=== PATIENT | male | born 1970 | race Caucasian/White ===

== ENCOUNTER 2018-04-18 14:58 | Emergency (ER) | payer OTHER, SELFPAY ==
[2018-04-18 15:06] VITALS: BP 127/87; PULSE 59; RESP 14; TEMP 36.8; O2SAT 98
--- NOTE | 2018-04-18 15:12 | ED.TRAUMA ---
HPI - Trauma General Chief Complaint: Extremity Injury, Upper Stated Complaint: right side shoulder pain from a fall Time Seen by Provider: 04/18/18 15:11 Source: patient and family Mode of arrival: ambulatory Limitations: no limitations History of Present Illness HPI narrative: This is a 48-year-old male who comes to the emergency department with complaint of right thoracic back pain. Patient was riding a horse that bucked him off. Patient was helmeted. He fell onto his back sort of striking posterior right shoulder. He states that every time he moves the shoulder or arm it feels like something is moving in properly, below the scapula in the thoracic back region. Patient states he did hit his head, he was helmeted, he states he was not knocked out he did see stars. He denies any headache, denies any vision changes, he denies any nausea or vomiting. States he has pain with deep inspiration but otherwise does not feel short of breath. He does not have any anterior chest pain. Patient does not have any other GI or urinary symptoms. He does have shingles currently which he is being treated for. Related Data Home Medications Medication Instructions Recorded Confirmed acyclovir 04/18/18 Previous Rx's Medication Instructions Recorded meloxicam [Mobic] 7.5 mg PO BID #10 tab 04/18/18 Allergies Allergy/AdvReac Type Severity Reaction Status Date / Time Penicillins Allergy Verified 04/18/18 15:08 Review of Systems Review of Systems ROS Unobtainable: All systems reviewed & are unremarkable except as noted in HPI and below ENT Ears, Nose, Mouth, and Throat: Denies neck pain Cardiovascular Denies chest pain, Denies edema, Denies dyspnea and Denies dyspnea on exertion Respiratory Denies cough, Denies hemoptysis, Reports pain on inspiration, Denies dyspnea, Denies dyspnea on exertion and Denies wheezing Gastrointestinal Gastrointestinal: Denies abdominal pain, Denies change in bowel habits, Denies diarrhea, Denies nausea and Denies vomiting Musculoskeletal Reports back pain (thoracic, below scapular), Denies deformity, Denies arthralgias, Reports limited range of motion, Denies muscle weakness, Denies neck pain, Denies numbness, Denies radiating pain into limb, Denies stiffness and Denies tingling Integumentary/Breasts Reports other (shingles) Neurologic Denies numbness and Denies tingling Allergic/Immunologic Denies wheezing PFSH Medical History Shingles (Acute) Exam Narrative Exam Narrative: GEN: Patient appears in mild distress. HEAD: No evidence of trauma, no raccoon/Mckeon sign. NECK: Nontender, painless range of motion, trachea midline Negative Nexus criteria, there is no midline tenderness, distracting injury, altered mental status, neuro deficit, recent EtOH. EYES: PERRLA, EOMI ENT: External inspection normal, trachea is midline, TM's are normal no hemotypanum, Nares are clear, no septal hematoma, no dental or oral injury, airway is normal and with normal occlusion, No bony tenderness RESP: Chest is nontender and has symmetric movement, no ecchymosis, breath sounds are normal no crackles, wheezes or rales CVS: Heart sounds are normal, no murmur noted, No JVD. ABG/GI: Nontender, soft, normal bowel sounds, no distention, no organomegaly, pelvic rock is negative NEURO: Oriented AOx3, neuro is grossly intact, sensation and motor is normal all 4 extremities moving, cranial nerves II through XII are intact, GCS is 15 PSYCH: Normal mood and affect SKIN: Intact, warm and dry, no crepitus and without decubitus patient has 2 small areas rash consistent with shingles on the left on the lateral angle of the ribs and just lateral to the thoracic spine in the T8 dermatome. No ecchymosis or bruising. BACK: No CVA tenderness, no vertebral tenderness, no step-off's, no crepitus. Patient does not have any point tenderness, no deformity. No subcutaneous emphysema. He has slightly more discomfort in the right thoracic region inferior to the scapula by about 3 in. EXT: Atraumatic, hips are nontender, no pedal edema, normal color and temperature, normal range of motion of extremities with normal tendon exam, 2+ pulses in all four extremities Initial Vital Signs Initial Vital Signs: Vital Signs Temperature 98.2 F 04/18/18 15:06 Pulse Rate 59 L 04/18/18 15:06 Respiratory Rate 14 04/18/18 15:06 Blood Pressure 127/87 04/18/18 15:06 Pulse Oximetry 98 04/18/18 15:06 Course Orders Ordered: ED Orders 04/18/18 15:11 XR ribs RT min 3V w CXR1V Stat Vital Signs - 8 hr 04/18/18 15:06 Temperature 98.2 F Pulse Rate 59 L Respiratory Rate 14 Blood Pressure 127/87 Pulse Oximetry 98 [facility] - Trauma Imaging Data rib series, cxr: Radiologist's impression: [address] [address] XRay Report Signed Patient: Jesus Manuel De Santiago MR#: [id number] : 1970 Acct:[id number] Age/Sex: 48 / M Date of Service: 04/18/18 Loc: ED Accession Number: [id number] Procedure: XR ribs RT min 3V w CXR1V Ordering Provider: Parvin Weinstein D.O. PROCEDURE: XR RIBS RT MIN 3V W CXR 1V INDICATIONS: right rib pain, posterior below scapular region TECHNIQUE: 2 views of the right ribs were acquired, along with a single view chest. COMPARISON: None. FINDINGS: Surgical changes and devices: None. Bones and chest wall: No fractures or dislocations. No suspicious bony lesions. Overlying soft tissues appear unremarkable. Lungs and pleura: No pleural effusions or pneumothorax. Lungs appear clear. Mediastinum: Mediastinal contours appear normal. Heart size is normal. IMPRESSION: No gross displaced rib fracture. No acute cardiopulmonary pathology. Dictated by: Kory Spring M.D. on 04/18/2018 at 15:27 Approved by: Kory Spring M.D. on 04/18/2018 at 15:29 [facility] Narrative Medical decision making narrative: Patient defers any pain medications, he took Alleve prior to arrival. No acute changes found on patient's x-ray. We did discuss he could have a very small nondisplaced rib fracture. Discussed signs symptoms to watch for reasons to return emergently. We discussed trying some different medication for pain. Patient is not particularly interested in narcotic options so we discussed trying Mobic twice daily but avoiding any other NSAIDs while taking this. We did discuss he can also do Tylenol. Was offered a work no but he defers. Discharge Plan Departure Patient Disposition: Home Clinical Impression: Acute thoracic back pain Instructions: DI for Thoracic Back Pain Activity Restrictions/Additional Instructions: Follow up for recheck in the next 5-7 days if no improvement. Take medications as prescribed. Do not take ibuprofen, Aleve or naproxen with this medication you may take it twice daily. You may take Tylenol up to a 1000 mg every 8 hr as needed for pain. You may take 3000 mg of Tylenol in a 24 hr period. Return to the emergency department for new numbness, weakness, altered mental status, difficulty breathing, passing out, persistent vomiting or other new or concerning symptoms. Prescriptions: New meloxicam [Mobic] 7.5 mg tablet 7.5 mg PO BID Qty: 10 RF: 0 No Action acyclovir 800 mg Tablet RF: 0
--- NOTE | 2018-04-18 15:18 | ED_ITS ---
HPI - Trauma General Chief Complaint: Extremity Injury, Upper Stated Complaint: right side shoulder pain from a fall Time Seen by Provider: 04/18/18 15:11 Source: patient and family Mode of arrival: ambulatory Limitations: no limitations History of Present Illness HPI narrative: This is a 48-year-old male who comes to the emergency department with complaint of right thoracic back pain. Patient was riding a horse that bucked him off. Patient was helmeted. He fell onto his back sort of striking posterior right shoulder. He states that every time he moves the shoulder or arm it feels like something is moving in properly, below the scapula in the thoracic back region. Patient states he did hit his head, he was helmeted, he states he was not knocked out he did see stars. He denies any headache, denies any vision changes, he denies any nausea or vomiting. States he has pain with deep inspiration but otherwise does not feel short of breath. He does not have any anterior chest pain. Patient does not have any other GI or urinary symptoms. He does have shingles currently which he is being treated for. Related Data Home Medications Medication Instructions Recorded Confirmed acyclovir 04/18/18 Previous Rx's Medication Instructions Recorded meloxicam [Mobic] 7.5 mg PO BID #10 tab 04/18/18 Allergies Allergy/AdvReac Type Severity Reaction Status Date / Time Penicillins Allergy Verified 04/18/18 15:08 Review of Systems Review of Systems ROS Unobtainable: All systems reviewed & are unremarkable except as noted in HPI and below ENT Ears, Nose, Mouth, and Throat: Denies neck pain Cardiovascular Denies chest pain, Denies edema, Denies dyspnea and Denies dyspnea on exertion Respiratory Denies cough, Denies hemoptysis, Reports pain on inspiration, Denies dyspnea, Denies dyspnea on exertion and Denies wheezing Gastrointestinal Gastrointestinal: Denies abdominal pain, Denies change in bowel habits, Denies diarrhea, Denies nausea and Denies vomiting Musculoskeletal Reports back pain (thoracic, below scapular), Denies deformity, Denies arthralgias, Reports limited range of motion, Denies muscle weakness, Denies neck pain, Denies numbness, Denies radiating pain into limb, Denies stiffness and Denies tingling Integumentary/Breasts Reports other (shingles) Neurologic Denies numbness and Denies tingling Allergic/Immunologic Denies wheezing PFSH Medical History Shingles (Acute) Exam Narrative Exam Narrative: GEN: Patient appears in mild distress. HEAD: No evidence of trauma, no raccoon/Mckeon sign. NECK: Nontender, painless range of motion, trachea midline Negative Nexus criteria, there is no midline tenderness, distracting injury, altered mental status, neuro deficit, recent EtOH. EYES: PERRLA, EOMI ENT: External inspection normal, trachea is midline, TM's are normal no hemotypanum, Nares are clear, no septal hematoma, no dental or oral injury, airway is normal and with normal occlusion, No bony tenderness RESP: Chest is nontender and has symmetric movement, no ecchymosis, breath sounds are normal no crackles, wheezes or rales CVS: Heart sounds are normal, no murmur noted, No JVD. ABG/GI: Nontender, soft, normal bowel sounds, no distention, no organomegaly, pelvic rock is negative NEURO: Oriented AOx3, neuro is grossly intact, sensation and motor is normal all 4 extremities moving, cranial nerves II through XII are intact, GCS is 15 PSYCH: Normal mood and affect SKIN: Intact, warm and dry, no crepitus and without decubitus patient has 2 small areas rash consistent with shingles on the left on the lateral angle of the ribs and just lateral to the thoracic spine in the T8 dermatome. No ecchymosis or bruising. BACK: No CVA tenderness, no vertebral tenderness, no step-off's, no crepitus. Patient does not have any point tenderness, no deformity. No subcutaneous emphysema. He has slightly more discomfort in the right thoracic region inferior to the scapula by about 3 in. EXT: Atraumatic, hips are nontender, no pedal edema, normal color and temperature, normal range of motion of extremities with normal tendon exam, 2+ pulses in all four extremities Initial Vital Signs Initial Vital Signs: Vital Signs Temperature 98.2 F 04/18/18 15:06 Pulse Rate 59 L 04/18/18 15:06 Respiratory Rate 14 04/18/18 15:06 Blood Pressure 127/87 04/18/18 15:06 Pulse Oximetry 98 04/18/18 15:06 Course Orders Ordered: ED Orders 04/18/18 15:11 XR ribs RT min 3V w CXR1V Stat Vital Signs - 8 hr 04/18/18 15:06 Temperature 98.2 F Pulse Rate 59 L Respiratory Rate 14 Blood Pressure 127/87 Pulse Oximetry 98 [facility] - Trauma Imaging Data rib series, cxr: Radiologist's impression: [address] [address] XRay Report Signed Patient: Jesus Manuel De Santiago MR#: [id number] : 1970 Acct:[id number] Age/Sex: 48 / M Date of Service: 04/18/18 Loc: ED Accession Number: [id number] Procedure: XR ribs RT min 3V w CXR1V Ordering Provider: Parvin Weinstein D.O. PROCEDURE: XR RIBS RT MIN 3V W CXR 1V INDICATIONS: right rib pain, posterior below scapular region TECHNIQUE: 2 views of the right ribs were acquired, along with a single view chest. COMPARISON: None. FINDINGS: Surgical changes and devices: None. Bones and chest wall: No fractures or dislocations. No suspicious bony lesions. Overlying soft tissues appear unremarkable. Lungs and pleura: No pleural effusions or pneumothorax. Lungs appear clear. Mediastinum: Mediastinal contours appear normal. Heart size is normal. IMPRESSION: No gross displaced rib fracture. No acute cardiopulmonary pathology. Dictated by: Kory Spring M.D. on 04/18/2018 at 15:27 Approved by: Kory Spring M.D. on 04/18/2018 at 15:29 [facility] Narrative Medical decision making narrative: Patient defers any pain medications, he took Alleve prior to arrival. No acute changes found on patient's x-ray. We did discuss he could have a very small nondisplaced rib fracture. Discussed signs symptoms to watch for reasons to return emergently. We discussed trying some different medication for pain. Patient is not particularly interested in narcotic options so we discussed trying Mobic twice daily but avoiding any other NSAIDs while taking this. We did discuss he can also do Tylenol. Was offered a work no but he defers. Discharge Plan Departure Patient Disposition: Home Clinical Impression: Acute thoracic back pain Instructions: DI for Thoracic Back Pain Activity Restrictions/Additional Instructions: Follow up for recheck in the next 5-7 days if no improvement. Take medications as prescribed. Do not take ibuprofen, Aleve or naproxen with this medication you may take it twice daily. You may take Tylenol up to a 1000 mg every 8 hr as needed for pain. You may take 3000 mg of Tylenol in a 24 hr period. Return to the emergency department for new numbness, weakness, altered mental status, difficulty breathing, passing out, persistent vomiting or other new or concerning symptoms. Prescriptions: New meloxicam [Mobic] 7.5 mg tablet 7.5 mg PO BID Qty: 10 RF: 0 No Action acyclovir 800 mg Tablet RF: 0
[2018-04-18 16:28] VITALS: BP 125/65; PULSE 61; RESP 16; O2SAT 99
== END 2018-04-18 16:27 | disposition home or self-care (01) ==
PROVIDERS: Emergency Provider Emergency Medicine
DX: M54.6 Pain in thoracic spine (principal)
CPT/HCPCS: 71101; 99282; 99283

== ENCOUNTER 2024-03-01 13:59 | Day surgery (SDC) | payer OTHER, SELFPAY ==
[2024-03-01 14:36] VITALS: BP 134/87; PULSE 58; RESP 16; TEMP 36.6; O2SAT 94
--- NOTE | 2024-03-01 15:14 | P.HP_ITS ---
History of Present Illness History of Present Illness Date Patient Seen: 03/01/24 Time Patient Seen: 15:14 Chief complaint: [facility] [place] Narrative: 54-year-old male here for 1st time screening colonoscopy. No family history of colon cancer. Occasional painless bright red blood per rectum. PFSH Medical History Shingles Social History Smoking Status: Never smoker alcohol intake: current Meds Home Medications and Allergies Allergies Allergy/AdvReac Type Severity Reaction Status Date / Time Penicillins Allergy Verified 04/18/18 15:08 Exam Vital Signs (past 8 hours): - 03/01/24 14:36 Temperature 97.9 F Pulse Rate 58 L Respiratory Rate 16 Blood Pressure 134/87 Pulse Oximetry 94 Oxygen Delivery Method Room Air Oxygen Delivery Method Room Air Narrative Exam Narrative: General adult man alert oriented no acute distress Chest nonlabored respiration Extremities warm well perfused Assessment & Plan Assessment & Plan narrative: The patient requires colorectal screening and colonoscopy is recommended. Technical details were discussed. Risks, benefits, alternatives explained. Risks including but not limited to myocardial infarction, aspiration, bleeding, pain, missed lesion, incomplete examination, need for further radiographic studies, intestinal injury, and need for major abdominal surgery were discussed. All questions were answered to their satisfaction, and they are in agreement with this plan. Time-Based Coding :: [TOTAL MINUTES] spent with patient and on the chart (including review of chart, obtaining history, exam, reviewing outside data, placing orders, documenting exam and treatment plan, and counseling patient) on [DATE].
--- NOTE | 2024-03-01 15:19 | P.OP.COLON_ITS ---
Operative Date/Time/Diagnoses Date of procedure: 03/01/24 Time of procedure: 15:20 Pre-op diagnosis: Colorectal screening Procedure & Clinicians Study performed: Screening colonoscopy Indications: Screening Surgeon: Rafita Ku Procedure Notes Procedure in detail: The history and physical was performed/updated and the patient is ASA class is 2. The procedure was discussed in detail with the patient. Potential risks complications including infection, bleeding, missed diagnosis, perforation, need for surgery, and were explained. Their questions were answered and informed consent was obtained. Patient was brought to the procedure room and placed standard monitoring equipment. The patient's vital signs were monitored continuously throughout the entire procedure. Prior to starting time-out was performed. The patient was placed in the left lateral recumbent position. Procedural sedation was administered by anesthesia. Examination began with a thorough inspection of the perianal area there was no evidence of fissures, fistulae, external hemorrhoids or cutaneous malignancy. The colonoscopy scope was then placed into the anal canal and was advanced to the cecum, which was identified by the ileocecal valve, the appendiceal orifice and the confluence of the taenia. The scope was then slowly withdrawn examining colon thoroughly in all directions, irrigating it of any residual stool. The scope was retroflexed within the rectum The patient tolerated the procedure well. They will be discharged once criteria are met. The prep was of good/excellent quality. The withdrawl time was 6 minutes. FINDINGS * Small internal hemorrhoids otherwise unremarkable colonoscopy Specimen(s): none sent Impression: Normal colonoscopy Post-procedure Recommendations: Colonoscopy in 10 years Disposition: same day surgery
[2024-03-01 15:35] VITALS: BP 113/81; PULSE 67; RESP 17; TEMP 36.4; O2SAT 94
[2024-03-01 15:42] VITALS: BP 116/84; PULSE 61; RESP 15; TEMP 36.4; O2SAT 94
[2024-03-01 15:47] VITALS: BP 124/87; PULSE 63; RESP 12; O2SAT 95
[2024-03-01 15:51] VITALS: BP 125/90; PULSE 70; RESP 19; TEMP 36.3; O2SAT 95
== END 2024-03-01 16:09 | disposition home or self-care (01) ==
PROVIDERS: Referring Provider Surgery; Visit Provider Surgery
PROC: 0DJD8ZZ Inspection of Lower Intestinal Tract, Via Natural or Artificial Opening Endoscopic (ICD-10-PCS; CPT 45378; principal; 2024-03-01 15:00)
DX: Z12.11 Encounter for screening for malignant neoplasm of colon (principal); K64.8 Other hemorrhoids
CPT/HCPCS: 45378; J2704